=== PATIENT | female | born 1960 | race Caucasian/White ===

== ENCOUNTER 2025-03-06 06:22 | Day surgery (SDC) | payer OTHER, SELFPAY | END 2025-03-06 12:15 | disposition home or self-care (01) | LOC: GI 06:22 | PROVIDERS: ATTENDING PHYSICIAN Internal Medicine Gastroenterology | DX: Z12.11 Encounter for screening for malignant neoplasm of colon (principal); D12.0 Benign neoplasm of cecum; D12.3 Benign neoplasm of transverse colon; D12.4 Benign neoplasm of descending colon; Z86.0101 Personal history of adenomatous and serrated colon polyps; Z83.719 Family history of colon polyps, unspecified | CPT/HCPCS: 45385; 45380; 88305 ==